=== PATIENT | male | born 1960 | race Caucasian/White ===

== ENCOUNTER → 2017-07-30 | Outpatient (CLI) | payer OTHER ==
[~2017-07-30] MED LIST: AMLO10 PO; LISI-515 PO; PRED20 PO; PRIL20TA2 PO; SACC1CAP3 PO; URSO1TAB5 PO; URSO300C2 PO
[2017-07-30 13:06] LABS: BLOOD, URINE NEG (NEG); COMMENT (UR) CULT NOT INDICATED; CULTURE IF INDICATED CULT NOT INDICATED; GLUCOSE,URINE NEG (NEG); KETONE, URINE NEG (NEG); NITRITE,URINE NEG (NEG); URINE COLOR LIGHT-YELLOW (YELLW/STRAW)
[2017-07-30 13:18] LABS: HEMATOCRIT 41.5 % (39.0-51.0); MEAN CORPUSCULAR HEMOGLOBIN 26.4 PG (27.0-34.0); PLATELET COUNT 323 TH/MM3 (150-450); RED BLOOD COUNT 5.19 MIL/MM3 (4.50-5.90); RED CELL DISTRIBUTION WIDTH 17.4 % (11.6-17.2); WHITE BLOOD COUNT 9.5 TH/MM3 (4.0-11.0)
[2017-07-30 13:19] LABS: HEMO FLAGS AUTO DIFF
[2017-07-30 13:28] LABS: ALT (GPT) 114 U/L (12-78); ANION GAP 9 MEQ/L (5-15); AST (GOT) 36 U/L (15-37); BICARBONATE 27.6 MEQ/L (21.0-32.0); BLOOD UREA NITROGEN 15 MG/DL (7-18); CHLORIDE 106 MEQ/L (98-107); GLOMERULAR FILTRATION RATE 53 ML/MIN (>89); GLUCOSE,FASTING 99 MG/DL (74-99); POTASSIUM 3.1 MEQ/L (3.5-5.1); SODIUM (NA) 143 MEQ/L (136-145)
[2017-07-30 13:31] LABS: ALKALINE PHOSPHATASE 76 U/L (45-117); TOTAL BILIRUBIN ADULT 0.7 MG/DL (0.2-1.0)
[2017-07-30 13:35] LABS: INTERNATIONAL NORMALIZED RATIO 0.9 RATIO; PROTHROMBIN TIME - PATIENT 10.4 SEC (9.8-11.6)
--- NOTE | 2017-07-30 13:47 | RADRPT ---
EXAM DATE/TIME: 07/30/2017 12:47 [place] COMPARISON: No previous studies available for comparison. INDICATIONS : Evaluate for pneumonia, pneumothorax, or communicable disease. Pre op for colectomy. MEDICAL HISTORY : None. SURGICAL HISTORY : None. ENCOUNTER: Initial ACUITY: 1 day PAIN SCORE: 0/10 LOCATION: Chest FINDINGS: Minimal left basilar streakiness is noted consistent with atelectasis and/or developing infiltrate. Clinical correlation is recommended. The heart is normal. The pulmonary vascular pattern is also no rmal. The right lung is clear. CONCLUSION: Minimal left basilar streakiness consistent with atelectasis and/or developing infiltrate. Clinical correlation is recommended. Yunior Vallejo MD on July 30, 2017 at 13:28 Board Certified Radiologist. This report was verified electronically.
[2017-07-30 13:57] LABS: BASOPHILS 2 % (0-2); NEUTROPHIL # MANUAL DIFF 7.6 TH/MM3 (1.8-7.7); PLATELET ESTIMATE SMEAR NORMAL (NORMAL); PLATELET MORPHOLOGY NORMAL (NORMAL); POLYS (SEG NEUTROPHILS) 80 % (16-70); SCAN/DIFF FINAL DIFF MANUAL; WBC DIFF SAMPLE 100
--- NOTE | 2017-07-31 18:21 | EKG ---
Date Performed: 07/30/2017 Time Performed: 12:09:51 PTAGE: 57 years EKG: Sinus rhythm NORMAL ECG NO PREVIOUS TRACING DOCTOR: Eb Hdz Interpretating Date/Time 07/31/2017 18:19:44
== END ==
LOC: CPRE 11:45
PROVIDERS: ATTEND Colon & Rectal Surgery
DX: Z01.810 Encounter for preprocedural cardiovascular examination (principal); Z01.812 Encounter for preprocedural laboratory examination; Z01.818 Encounter for other preprocedural examination; K51.90 Ulcerative colitis, unspecified, without complications
CPT/HCPCS: 36415; 71020; 80053; 81001; 85007; 85027; 85610; 85730; 93005

== ENCOUNTER 2017-08-06 10:55 | Inpatient (IN) | payer OTHER ==
[2017-08-06] VITALS (7 sets, daily range): BP systolic 129–135; BP diastolic 84–89; PULSE 89–112; RESP 18; TEMP 97.7–98.5; O2SAT 95–96
[~2017-08-06] VITALS: Ht 165.1 cm; Wt 85.6 kg
[~2017-08-06 10:55] MED LIST changes: -URSO300C2 PO
--- NOTE | 2017-08-06 11:14 | PD.HP.UP ---
H&P Update Note The Pre-Admit History and Physical Examination regarding the above named patient was reviewed (including, but not limited to, vital signs, heart, lungs, co-morbid conditions), and upon re-examination it is noted that: the patient's condition has not significantly changed since the last examination. Vikas Johnson MD Aug 06, 2017 11:14
[2017-08-06] MEDS ORDERED: URSO300C2 PO (11:57)
[2017-08-06] MEDS ORDERED: METOPROLOL TARTRATE 25 MG TAB PO PRN (12:00)
[2017-08-06] MEDS ORDERED: CHLORHEXIDINE GLUCONATE 2 % 1 PACK (2 CLOTHS) TOPICAL PRN (12:00)
[2017-08-06] MEDS ORDERED: NEOSTIGMINE 3 MG/3 ML SYR IV ONE (12:00)
[2017-08-06] MEDS ORDERED: ceFAZolin 1,000 MG/NS 100 ML IV SCH ×2 (12:00)
[2017-08-06] MEDS ORDERED: GLYCOPYRROLATE 1 MG/5 ML SYRINGE IV PUSH ONE (12:00)
[2017-08-06] MEDS ORDERED: LACTATED RINGER'S 1000 ML IV PRN (12:00)
[2017-08-06] MEDS ORDERED: POVIDONE IODINE 5% (ANTISEPSIS KIT) 4 APPLICATIONS EACH NARE PRN (12:00)
[2017-08-06] MEDS ORDERED: METRONIDAZOLE 500 MG/100 ML ISONTONIC SOLN IV SCH (12:00)
[2017-08-06] MEDS ORDERED: LIDOCAINE HCL 1% PF 5 ML AMPULE OTHER ONE (12:00)
[2017-08-06] MEDS ORDERED: MIDAZOLAM HCL 2 MG/2 ML VIAL IV ONE (12:00)
[2017-08-06] MEDS ORDERED: ALVIMOPAN 12 MG CAPSULE - On Call PO SCH (12:00)
[2017-08-06] MEDS ORDERED: ONDANSETRON HCL 4 MG/2 ML VIAL IV PUSH ONE (12:00)
[2017-08-06] MEDS ORDERED: SODIUM CHLORID 0.9% 500 ML IV PRN (12:00)
[2017-08-06] MEDS ORDERED: ROCURONIUM INJ 50 MG/5 ML SYRINGE IV PUSH ONE (12:00)
[2017-08-06] MEDS ORDERED: INSULIN HUMAN REGULAR 1,000 UNITS/10 ML VIAL SQ PRN (12:00)
[2017-08-06] MEDS ORDERED: MORPHINE SULFATE 4 MG/ML INJ IV ONE (12:00)
[2017-08-06] MEDS ORDERED: PROPOFOL 200 MG/20 ML AMP IV ONE (12:00)
[2017-08-06] MEDS ORDERED: FAMOTIDINE 20 MG/2 ML VIAL ONE (12:49)
[2017-08-06] MEDS ORDERED: DEXAMETHASONE SOD PHOS 4 MG/ML VIAL ONE (12:49)
--- NOTE | 2017-08-06 15:46 | HHI.PR ---
Immediate Post Op Note Procedure Date: Aug 06, 2017 Pre Op Diagnosis: Tena-colitis Post Op Diagnosis: Same Surgeon: Vikas Johnson Care Aid(s): Zackary Procedure: Exploratory lap + total proctocolectomy/ileostomy, liver bx, omental flap Findings: more severe colitis rt, transv, lt colon, some sparing RS to rectum liver nl to palp GB thin walled, no obv stones Complications: None Specimen(s) removed: total abd proctocolon Bx rt lobe liver Estimated blood loss: 100cc Anesthesia: General Drains: LUCAS IVF Patient to: PACU Patient Condition: Good Vikas Johnson MD Aug 06, 2017 15:46
[2017-08-06] MEDS ORDERED: *morphine SULFATE 8 MG/ML PERIprocedure ONLY ONE ×2 (15:48→16:02)
[2017-08-06] MEDS ORDERED: POTASSIUM CHLOR 40 MEQ PREMIX 100 ML IV PRN (16:00)
[2017-08-06] MEDS ORDERED: ACETAMINOPHEN 325 MG TAB PO PRN (16:00)
[2017-08-06] MEDS ORDERED: BENZOCAINE 6 MG/MENTHOL 10 MG LOZENGE BUCCAL PRN (16:00)
[2017-08-06] MEDS ORDERED: ACETAMINOPHEN/HYDROcodone 325 MG/5 MG TAB PO PRN (16:00)
[2017-08-06] MEDS ORDERED: POTASSIUM CHLOR 20 MEQ PREMIX 100 ML IV PRN (16:00)
[2017-08-06] MEDS ORDERED: Post-op Orders (for Pharmacy) MISC XX ONE (16:00)
[2017-08-06] MEDS ORDERED: BUPIVACAINE HCL PF 0.5% 30 ML VIAL NB SCH (16:00)
[2017-08-06] MEDS ORDERED: ENALAPRILAT 2.5 MG/2 ML VIAL IV PRN (16:00)
[2017-08-06] MEDS ORDERED: NALOXONE HCL 0.4 MG/ML AMP IV PRN (16:00)
[2017-08-06] MEDS ORDERED: SODIUM CHLORIDE 0.9% FLUSH 5 ML FLUSH IVF PRN (16:00)
[2017-08-06] MEDS: D5-NS + KCL 20 MEQ INJ 1,000 ML IV SCH ×2 (16:10→21:58)
[2017-08-06] MEDS: MORPHINE SULFATE 30 MG/30 ML PCA IV SCH (16:10)
[2017-08-06] MEDS ORDERED: *HYDROmorphone PF 1 MG VIAL PERIprocedural Use ONLY ONE ×2 (16:23→17:26)
[2017-08-06] MEDS ORDERED: DO NOT ADM ANY ANTICOAGULANT DRUGS PRN (17:15)
[2017-08-06] MEDS: KETOROLAC TROMETHAMINE 30 MG/ML (IVP) VIAL IVP PRN (18:18)
[2017-08-06] MEDS: DEXT 5%-NACL 0.9% 1000 ML INJ 1,000 ML IV SCH (19:13)
[2017-08-06] MEDS: HYDROCORTISONE SOD SUCCINATE 100 MG VIAL IV PUSH SCH (19:33)
[2017-08-06] MEDS: SODIUM CHLORIDE 0.9% FLUSH 5 ML FLUSH IVF SCH (21:00)
[2017-08-06] MEDS: METOCLOPRAMIDE HCL 10 MG/2 ML VIAL IVS SCH (21:07)
[2017-08-06] MEDS: metroNIDAZOLE 500 MG INJ 100 ML IV SCH (21:08)
[2017-08-06] MEDS: PCA - TOTAL MG MORPHINE DELIVERED PER SHIFT SCH (21:56)
[2017-08-07] VITALS (25 sets, daily range): BP systolic 138–162; BP diastolic 84–102; PULSE 70–99; RESP 16–22; TEMP 96.6–98.8; O2SAT 94–96
[2017-08-07] MEDS: KETOROLAC TROMETHAMINE 30 MG/ML (IVP) VIAL IVP PRN ×2 (00:46→16:09)
[2017-08-07] MEDS: MORPHINE SULFATE 30 MG/30 ML PCA IV SCH ×2 (01:16→22:16)
[2017-08-07] MEDS: DEXT 5%-NACL 0.9% 1000 ML INJ 1,000 ML IV SCH ×3 (02:25→20:00)
[2017-08-07] MEDS: HYDROCORTISONE SOD SUCCINATE 100 MG VIAL IV PUSH SCH ×3 (03:42→20:39)
[2017-08-07] MEDS: metroNIDAZOLE 500 MG INJ 100 ML IV SCH ×2 (05:19→14:24)
[2017-08-07] MEDS: D5-NS + KCL 20 MEQ INJ 1,000 ML IV SCH ×2 (05:21→13:02)
[2017-08-07] MEDS: PCA - TOTAL MG MORPHINE DELIVERED PER SHIFT SCH ×3 (05:22→20:49)
[2017-08-07 05:53] LABS: AUTOMATED NEUTROPHIL # 16.5 TH/MM3 (1.8-7.7); BASOPHIL % 0.1 % (0.0-2.0); HEMATOCRIT 40.3 % (39.0-51.0); HEMO FLAGS DIFF FINAL; LYMPH % 2.2 % (9.0-44.0); LYMPHOCYTE # 0.4 TH/MM3 (1.0-4.8); MEAN CELL VOLUME 81.7 FL (80.0-100.0); MEAN CORPUSCULAR HGB CONC 31.8 % (32.0-36.0); MONO % 6.9 % (0.0-8.0); NEUT % 90.8 % (16.0-70.0); PLATELET COUNT 345 TH/MM3 (150-450); RED BLOOD COUNT 4.93 MIL/MM3 (4.50-5.90); RED CELL DISTRIBUTION WIDTH 17.2 % (11.6-17.2); WHITE BLOOD COUNT 18.2 TH/MM3 (4.0-11.0)
[2017-08-07 06:20] LABS: BICARBONATE 25.6 MEQ/L (21.0-32.0); POTASSIUM 3.7 MEQ/L (3.5-5.1)
--- NOTE | 2017-08-07 07:48 | HHI.PR ---
Subjective Remarks C/R Surg POD # 1 afebrile, VSS LUCAS min Objective - Vital Signs Date Time Temp Pulse Resp B/P (MAP) Pulse Ox O2 Delivery O2 Flow Rate FiO2 08/07/17 06:00 77 08/07/17 05:22 16 08/07/17 03:30 95 Room Air 08/07/17 03:30 98.8 138/84 (102) 08/06/17 19:50 1.00 Result Diagram: 08/07/1731 08/07/17530 Objective Remarks PE alert Abd - soft , flat, stoma pink A/P Assessment and Plan Imp: stable post-op OOB decr IVF tx to floor Vikas Johnson MD Aug 07, 2017 07:48
[2017-08-07] MEDS: PANTOPRAZOLE SODIUM 40 MG VIAL IVP SCH (09:00)
[2017-08-07] MEDS: SODIUM CHLORIDE 0.9% FLUSH 5 ML FLUSH IVF SCH ×2 (09:00→20:41)
[2017-08-07] MEDS: PANTOPRAZOLE SOD 40 MG DELAYED RELEASE TAB PO SCH (09:07)
[2017-08-07] MEDS: ALVIMOPAN 12 MG CAPSULE - Post-op dosing PO SCH ×2 (09:07→20:40)
[2017-08-07] MEDS: LISINOPRIL 20 MG TAB PO SCH (09:07)
[2017-08-07] MEDS: METOCLOPRAMIDE HCL 10 MG/2 ML VIAL IVS SCH ×2 (09:08→20:41)
--- NOTE | 2017-08-07 14:17 | PD.WCN.NOT ---
Wound Consult Description: Consult for NEW OSTOMY TEACHING for stoma per Dr Johnson Communicated with: Patient Recommendation: Practice opening, emptying pouch of effluent, and closing pouch Read information booklet left and practice with pouch and barrier left in convatec kit Additional Information: Patient seen on [facility] earlier this morning. Ostomy Type: Ileostomy Surgeon: Vikas Johnson MD Date of Surgery: Aug 06, 2017 Complete: Starter kit, Education materials, Other Educated patient on: Stoma Size Appearance When to seek medical help Dehydration How to obtain appliances Type of appliances available (1 piece and 2 piece open ended) Nutrition and diet Activity Leaks Changing the appliance Additional information *Late entry* Patient seen on [facility] for ostomy evaluation and ileostomy teaching POD #1. Patient was comfortably lying in bed, awake, and alert upon arrival. Patient had many questions that were answered. Stoma was visualized on the right quadrant of abdomen and measuring 1 1/4". Ileostomy is red, round, moist, moderately protruding, functioning with minimal air and minimal dark green stool coming from lumen noted @ 11 o'clock. Mucocutaneous junction was not visualized at this time as appliance was not removed and noted to be intact. Patient was given an educational booklet and the practice pouch and barrier. Patient was able to demonstrate closing and opening the pouch. Supplies ordered in size 2 1/4" for appliance change. Patient will be seen by adjusto writer operator again on Friday08/07/17 for more teaching and to answer more questions So Jaimes Aug 07, 2017 14:17
[2017-08-07] MEDS: ENALAPRILAT 1.25 MG/ML VIAL IV PRN (15:39)
[2017-08-07] MEDS: ALVIMOPAN 12 MG CAPSULE PO SCH (20:40)
[2017-08-08] VITALS: BP 137/77; PULSE 88; RESP 22; TEMP 97.1; O2SAT 93
[2017-08-08] MEDS: DEXT 5%-NACL 0.9% 1000 ML INJ 1,000 ML IV SCH ×3 (03:52→20:29)
[2017-08-08 04:00] VITALS: BP 163/75; PULSE 93; RESP 20; TEMP 97.6; O2SAT 93
[2017-08-08] MEDS: D5-NS + KCL 20 MEQ INJ 1,000 ML IV SCH ×3 (04:21→20:30)
[2017-08-08] MEDS: HYDROCORTISONE SOD SUCCINATE 100 MG VIAL IV PUSH SCH ×3 (04:21→20:30)
[2017-08-08] MEDS: PCA - TOTAL MG MORPHINE DELIVERED PER SHIFT SCH ×3 (04:23→20:31)
--- NOTE | 2017-08-08 05:37 | MP ---
cc: KERRY CARDENAS M.D. DATE OF SURGERY August 06, 2017 PREOPERATIVE DIAGNOSES 1. Pancolitis. 2. Abnormal liver tests. 3. Possible gallstones. PROCEDURE 1. Exploratory laparotomy with total proctocolectomy and ileostomy and omental flap. 2. Bryan-Cut needle biopsy of the right lobe of the liver. POSTOPERATIVE DIAGNOSES 1. Acute pancolitis. 2. Abnormal liver function tests. SURGEON Dr. Cardenas ASSESSMENT Dr. Abel Raymundo PROCEDURE The patient was placed in the supine position. After adequate general anesthesia, his legs were placed in universal stirrups and supported appropriately. The abdomen and perineum were then prepped with Betadine solution and draped in the usual sterile fashion. With Dr. Raymundo's assistance the abdomen was opened through a midline incision. Exploration revealed inflammatory changes to the cecum, right colon transverse colon. The left colon appeared to be a little less obvious with the rectosigmoid showing mild changes of serosal colitis. No evidence of obstruction was present. No evidence of any masses were noted. The small bowel was run from ligament of Treitz down to ileocecal valve and felt to be unremarkable. Stomach and duodenum were normal. The liver was palpated and felt to be pretty normal. The gallbladder was fairly thin-walled and had some maybe fine granular material but no evidence of significant stones were palpated within the lumen. There are no other inflammatory changes to the gallbladder wall. The great vessels were of normal caliber and fairly soft to palpation. First the sigmoid colon was mobilized medially by dividing along the white line of Toldt. The left ureter was identified and carefully preserved. Dissection then proceeded up the left gutter freeing the left colon off the retroperitoneum. The right colon was then mobilized medially by dividing along the white line of Toldt and identifying and preserving the right ureter. Dissection then proceeded up taking down attachments to the hepatic and splenic flexures saving the gastrocolic omentum by taking it off its avascular plane along the transverse colon, entering the lesser sac. After full mobilization, the bowel was dissected off the presacral space down toward the pelvic floor, preserving the pelvic nerves. The bowel was then divided in the terminal ileum using the ADRIAN stapling device. The major vascular pedicles were taken between Sarah's, obtaining hemostasis with Vicryl ties. After the superior hemorrhoidal vessels were taken, the pelvic dissection was completed freeing the bowel down toward the pelvic floor and anteriorly the cul-de-sac was opened and the bowel dissected off the presacral fascia. The lateral stalks were taken with electrocautery and Vicryl ties as necessary for hemostasis. After complete mobilization down to the pelvic floor, the bowel was amputated below the pelvic muscles and the specimen was removed. Dr. Raymundo then went to the perineal aspect of the patient and completed the mucosectomy and proctectomy from below, closing the smooth muscle with interrupted Vicryl sutures, irrigating the subcu tissues and closing the subcu with again interrupted Vicryl sutures. Next, a circular stab wound was created in the right side of the abdomen and the end of the ileum brought up through the stab wound without tension and with good blood supply. The omentum was fashioned in a long pedicle flap and passed down the left gutter to fill the pelvic space. The abdomen was irrigated copiously with normal saline and hemostasis achieved at all operative sites. A Bishnu-Phillip drain was placed into the pelvis and brought up through a stab wound in the right lower quadrant, secured to the skin with a nylon suture. The abdomen was then closed reapproximating the midline fascia with #1 PDS suture. The subcu tissue was irrigated copiously and the skin closed with a running subcuticular Vicryl suture. The wound area was washed with normal saline and dried, sterile dressing of Telfa and gauze applied. Finally, the ADRIAN staple line was removed from the end of the ileostomy and the stoma matured in the usual Azeb fashion by placing a row of interrupted chromic catgut sutures around the circumference. At completion the stoma did appear to be viable and was prolapsing nicely; it was patent through the fascial level. A sterile ileostomy appliance was fitted over the new stoma. The patient tolerated the procedure quite well and was brought to the recovery room in stable condition. Sponge and needle counts were correct at the end of procedure. ADDENDUM Prior to closing a Bryan-Cut needle was used to take two random samples of the right lobe of the liver with good hemostasis achieved with electrocautery. MD GERDA Gutierrez/JOCE /6:03 PM /5:20 AM
[2017-08-08] MEDS: ENALAPRILAT 1.25 MG/ML VIAL IV PRN ×3 (05:40→20:39)
[2017-08-08 07:29] LABS: AUTOMATED NEUTROPHIL # 17.9 TH/MM3 (1.8-7.7); BASOPHIL % 0.2 % (0.0-2.0); HEMATOCRIT 36.8 % (39.0-51.0); HEMO FLAGS DIFF FINAL; LYMPH % 3.4 % (9.0-44.0); LYMPHOCYTE # 0.7 TH/MM3 (1.0-4.8); MEAN CELL VOLUME 82.3 FL (80.0-100.0); MEAN CORPUSCULAR HEMOGLOBIN 26.8 PG (27.0-34.0); MEAN CORPUSCULAR HGB CONC 32.5 % (32.0-36.0); MONO % 4.1 % (0.0-8.0); NEUT % 92.3 % (16.0-70.0); PLATELET COUNT 294 TH/MM3 (150-450); RED BLOOD COUNT 4.48 MIL/MM3 (4.50-5.90); RED CELL DISTRIBUTION WIDTH 17.2 % (11.6-17.2); WHITE BLOOD COUNT 19.5 TH/MM3 (4.0-11.0)
[2017-08-08 07:44] LABS: BICARBONATE 26.4 MEQ/L (21.0-32.0); POTASSIUM 3.7 MEQ/L (3.5-5.1)
[2017-08-08 08:00] VITALS: BP 175/97; PULSE 103; RESP 18; TEMP 97.4; O2SAT 93
[2017-08-08] MEDS: SODIUM CHLORIDE 0.9% FLUSH 5 ML FLUSH IVF SCH ×2 (09:00→20:30)
[2017-08-08] MEDS: ALVIMOPAN 12 MG CAPSULE PO SCH ×2 (09:00→20:30)
[2017-08-08] MEDS: PANTOPRAZOLE SOD 40 MG DELAYED RELEASE TAB PO SCH (09:00)
[2017-08-08] MEDS: ALVIMOPAN 12 MG CAPSULE - Post-op dosing PO SCH ×2 (09:00→20:29)
[2017-08-08] MEDS: METOCLOPRAMIDE HCL 10 MG/2 ML VIAL IVS SCH ×2 (10:34→20:30)
[2017-08-08] MEDS: PANTOPRAZOLE SODIUM 40 MG VIAL IVP SCH (10:34)
[2017-08-08] MEDS: LISINOPRIL 20 MG TAB PO SCH (10:35)
[2017-08-08 12:00] VITALS: BP 158/93; PULSE 101; RESP 18; TEMP 97; O2SAT 95
[2017-08-08 13:40] VITALS: BP 158/102; PULSE 103; RESP 24; TEMP 97; O2SAT 96
--- NOTE | 2017-08-08 13:48 | PD.WCN.NOT ---
Wound Consult Description: Consult for NEW OSTOMY TEACHING for stoma per Dr Johnson Communicated with: Patient Recommendation: Practice opening, emptying pouch of effluent, and closing pouch Read information booklet left and practice with pouch and barrier left in convatec kit Additional Information: Patient seen on [address] [place] [address] for ostomy assessment and teaching. Ostomy Type: Ileostomy Surgeon: Vikas Johnson MD Date of Surgery: Aug 06, 2017 Complete: Starter kit (Obtained verbal consent for starter kit to be sent out, estimated arrival date Friday08/12/17), Education materials, Rx (Script on chart), Other (4 appliances ordered in size 2 1/" for next appliance change and for patient to go home with the remaining ) Educated patient on: Supplies available Changing of barrier every 3-5 days Use of belts Use of barrier rings Peristomal skin care When to seek medical attention vs contacting physician Shaving peristomal skin with electric razor Additional information Patient seen on [address] [place] [address] for Ostomy assessment and teaching. Patient was sitting up in chair with student nurse at bedside when entering room. Patient had many questions that were answered. Patient stoma was visualized after removing the pouch to measure the ileostomy. Stoma is red, round, moist, moderately protruding, lumen noted @ 11 o'clock, functioning with liquid brown stool noted in pouch with intact wafer/barrier noted without leaks. So Jaimes [facility] Aug 08, 2017 13:48
[2017-08-08] MEDS: MORPHINE SULFATE 30 MG/30 ML PCA IV SCH (13:54)
[2017-08-08 20:00] VITALS: BP 175/100; PULSE 104; RESP 20; TEMP 97.2; O2SAT 96
--- NOTE | 2017-08-08 20:37 | HHI.PR ---
Subjective Remarks C/R Surg POD # 2 afebrile, VSS LUCAS min casey PO liq Objective - Vital Signs Date Time Temp Pulse Resp B/P (MAP) Pulse Ox O2 Delivery O2 Flow Rate FiO2 08/08/17 20:31 18 08/08/17 13:40 97.0 103 158/102 (120) 96 08/07/17 03:30 Room Air 08/06/17 19:50 1.00 Result Diagram: 08/08/17 0645 08/08/17 0645 Objective Remarks PE alert Abd - soft , flat, stoma pink, little output A/P Assessment and Plan Imp: OOB decr IVF adv diet Vikas Johnson MD Aug 08, 2017 20:37
[2017-08-09] VITALS: BP 150/85; PULSE 98; RESP 20; TEMP 98.3; O2SAT 95
[2017-08-09] MEDS: DEXT 5%-NACL 0.9% 1000 ML INJ 1,000 ML IV SCH (02:21)
[2017-08-09] MEDS: HYDROCORTISONE SOD SUCCINATE 100 MG VIAL IV PUSH SCH ×3 (02:21→19:55)
[2017-08-09] MEDS: PCA - TOTAL MG MORPHINE DELIVERED PER SHIFT SCH (05:28)
[2017-08-09] MEDS: SODIUM CHLORIDE 0.9% FLUSH 5 ML FLUSH IVF SCH ×2 (08:16→19:54)
[2017-08-09] MEDS: PANTOPRAZOLE SOD 40 MG DELAYED RELEASE TAB PO SCH ×3 (08:17→09:00)
[2017-08-09] MEDS: METOCLOPRAMIDE HCL 10 MG/2 ML VIAL IVS SCH ×2 (08:20→19:55)
[2017-08-09] MEDS: ALVIMOPAN 12 MG CAPSULE - Post-op dosing PO SCH ×2 (08:21→19:55)
[2017-08-09] MEDS: LISINOPRIL 20 MG TAB PO SCH (08:21)
[2017-08-09 08:43] VITALS: BP 146/89; PULSE 86; RESP 17; TEMP 98.3; O2SAT 97
[2017-08-09] MEDS: PANTOPRAZOLE SODIUM 40 MG VIAL IVP SCH (09:00)
[2017-08-09] MEDS: ALVIMOPAN 12 MG CAPSULE PO SCH ×2 (09:00→19:55)
[2017-08-09] MEDS ORDERED: D5-1/2 NS + KCL 20 MEQ INJ 1,000 ML IV SCH (10:00)
[2017-08-09 12:02] VITALS: BP 139/87; PULSE 83; RESP 17; TEMP 98.4; O2SAT 97
[2017-08-09] MEDS: ONDANSETRON HCL 4 MG/2 ML VIAL IV PRN ×2 (12:28→19:56)
[2017-08-09 15:49] VITALS: BP 160/108; PULSE 116; RESP 17; TEMP 97.6; O2SAT 96
[2017-08-09] MEDS: D5-1/2 NS + KCL 20 MEQ INJ 1,000 ML IV SCH (17:05)
[2017-08-09 20:00] VITALS: BP 171/101; PULSE 110; RESP 17; TEMP 96.3; O2SAT 95
[2017-08-09] MEDS: ENALAPRILAT 1.25 MG/ML VIAL IV PRN (20:13)
[2017-08-10] VITALS: BP 142/95; PULSE 99; RESP 17; TEMP 98.2; O2SAT 95
[2017-08-10] MEDS: HYDROCORTISONE SOD SUCCINATE 100 MG VIAL IV PUSH SCH (03:04)
[2017-08-10] MEDS: D5-1/2 NS + KCL 20 MEQ INJ 1,000 ML IV SCH ×3 (03:05→20:36)
[2017-08-10] MEDS: ALVIMOPAN 12 MG CAPSULE - Post-op dosing PO SCH ×2 (08:33→20:44)
[2017-08-10] MEDS: PANTOPRAZOLE SODIUM 40 MG VIAL IVP SCH (08:33)
[2017-08-10] MEDS: LISINOPRIL 20 MG TAB PO SCH (08:33)
[2017-08-10] MEDS: METOCLOPRAMIDE HCL 10 MG/2 ML VIAL IVS SCH ×2 (08:34→20:45)
[2017-08-10] MEDS: ALVIMOPAN 12 MG CAPSULE PO SCH ×2 (08:40→20:44)
[2017-08-10] MEDS: PANTOPRAZOLE SOD 40 MG DELAYED RELEASE TAB PO SCH (08:41)
[2017-08-10] MEDS: SODIUM CHLORIDE 0.9% FLUSH 5 ML FLUSH IVF SCH ×2 (08:41→20:45)
[2017-08-10 08:47] VITALS: BP 142/91; PULSE 92; RESP 20; TEMP 97.9; O2SAT 96
[2017-08-10] MEDS: ACETAMINOPHEN/HYDROcodone 325 MG/5 MG TAB PO PRN ×2 (12:40→17:58)
[2017-08-10 12:53] VITALS: BP 146/91; PULSE 100; RESP 20; TEMP 97.1; O2SAT 96
[2017-08-10 17:17] VITALS: BP 144/96; PULSE 96; RESP 19; TEMP 98.7; O2SAT 96
[2017-08-10] MEDS ORDERED: HYDROCORTISONE SOD SUCCINATE 100 MG VIAL IV PUSH SCH (20:00)
[2017-08-10 20:57] VITALS: BP 146/92; PULSE 88; RESP 18; TEMP 98.2; O2SAT 97
[2017-08-11 00:16] VITALS: BP 124/82; PULSE 82; RESP 20; TEMP 98.1; O2SAT 96
[2017-08-11] MEDS: ACETAMINOPHEN/HYDROcodone 325 MG/5 MG TAB PO PRN ×3 (03:45→17:29)
[2017-08-11] MEDS: D5-1/2 NS + KCL 20 MEQ INJ 1,000 ML IV SCH ×2 (06:43→20:53)
--- NOTE | 2017-08-11 07:25 | HHI.PR ---
Subjective Remarks C/R Surg POD # 5 afebrile, VSS LUCAS min casey PO liq stoma funct Objective - Vital Signs Date Time Temp Pulse Resp B/P (MAP) Pulse Ox O2 Delivery O2 Flow Rate FiO2 08/11/17 00:16 98.1 82 20 124/82 (96) 96 Result Diagram: 08/08/1745 08/08/1745 Objective Remarks PE alert Abd - soft , flat, stoma pink, wound dry A/P Assessment and Plan Imp: OOB decr IVF adv diet dc plans Vikas Johnson MD Aug 11, 2017 07:25
--- NOTE | 2017-08-11 07:28 | HHI.FF ---
Face to Face Verification Diagnosis: (1) Colitis Physical Therapy Order: Evaluate and Treat, Improve ambulation, Strength and gait training Home Health Nursing Order: Medical education Signs/symptoms of disease process Wound care and dressing changes Instructions: stoma teaching I have seen patient Power Arevalo on 08/11/17. My clinical findings support the need for the requested home health care services because: Ltd mobility - disease progression Deconditioned w/ increased weakness Need for psychosocial assistance Infection w/ risk of complications I certify that my clinical findings support that this patient is homebound because: Post-op weakness Unsteady gait/balance Vikas Johnson MD Aug 11, 2017 07:28
[2017-08-11 08:00] VITALS: BP 153/95; PULSE 86; RESP 20; TEMP 99.3; O2SAT 96
[2017-08-11] MEDS: SODIUM CHLORIDE 0.9% FLUSH 5 ML FLUSH IVF SCH ×2 (09:41→20:53)
[2017-08-11] MEDS: LISINOPRIL 20 MG TAB PO SCH (09:43)
[2017-08-11] MEDS: PANTOPRAZOLE SOD 40 MG DELAYED RELEASE TAB PO SCH (09:43)
[2017-08-11] MEDS: ALVIMOPAN 12 MG CAPSULE - Post-op dosing PO SCH ×2 (09:44→20:46)
[2017-08-11] MEDS: PANTOPRAZOLE SODIUM 40 MG VIAL IVP SCH (09:45)
[2017-08-11] MEDS: ALVIMOPAN 12 MG CAPSULE PO SCH ×2 (09:45→20:52)
[2017-08-11] MEDS: HYDROCORTISONE SOD SUCCINATE 100 MG VIAL IV PUSH SCH ×2 (10:39→20:44)
[2017-08-11] MEDS: METOCLOPRAMIDE HCL 10 MG/2 ML VIAL IVS SCH ×2 (10:39→20:46)
[2017-08-11 12:00] VITALS: BP 165/94; PULSE 110; RESP 20; TEMP 98.1; O2SAT 97
--- NOTE | 2017-08-11 15:23 | PD.WCN.NOT ---
Wound Consult Description: Consult for NEW OSTOMY TEACHING for stoma per Dr Johnson Communicated with: Patient Patient sister at bedside Recommendation: Empty pouch of effluent and ensure pouch is closed after emptying Read information booklet and practice with pouch and barrier left in Con[employer]ec kit Plan to change appliance on Friday08/12/17 Additional Information: Patient seen on [address] [place] [address] for ostomy assessment and teaching Ostomy Type: Ileostomy Surgeon: Vikas Johnson MD Date of Surgery: Aug 06, 2017 Complete: Starter kit (Obtained verbal consent for starter kit to be sent out, estimated arrival date Friday08/12/17), Education materials, Rx (Script on chart), Other (2 appliances ordered in size 2 1/4" and 2 appliances ordered in size 1 3/4" along with stomahesive and stoma powder) Educated patient on: Changing barrier tomorrow Skin care Foods to thicken stool Drinking plenty of fluids Ambulating Supplies Additional information Stoma visualized is red, round, moist, functioning with lumen noted @ 11 o' clock and moderately protruding. Mucocutaneous junction is noted with sutures in place other brown unremarkable. Peristomal skin is not visualized at this time. Barrier is intact with open ended pouch. Patient demonstrated how to open and close pouch. Patient had many questions that were answered. So Jaimes [facility] Aug 11, 2017 15:23
[2017-08-11 16:00] VITALS: BP 135/89; PULSE 93; RESP 20; TEMP 97.9; O2SAT 97
[2017-08-11 20:00] VITALS: BP 141/86; PULSE 105; RESP 20; TEMP 97.9; O2SAT 97
[2017-08-12] VITALS: BP 126/84; PULSE 87; RESP 18; TEMP 97.2; O2SAT 96
[2017-08-12] MEDS: ACETAMINOPHEN/HYDROcodone 325 MG/5 MG TAB PO PRN ×2 (02:45→11:06)
[2017-08-12] MEDS: ALVIMOPAN 12 MG CAPSULE PO SCH (07:41)
[2017-08-12 08:00] VITALS: BP_SYST 93; PULSE 93; RESP 18; TEMP 98; O2SAT 99
[2017-08-12] MEDS: PANTOPRAZOLE SODIUM 40 MG VIAL IVP SCH (08:33)
[2017-08-12] MEDS: PANTOPRAZOLE SOD 40 MG DELAYED RELEASE TAB PO SCH (08:35)
[2017-08-12] MEDS: ALVIMOPAN 12 MG CAPSULE - Post-op dosing PO SCH (08:35)
[2017-08-12] MEDS: LISINOPRIL 20 MG TAB PO SCH (08:36)
[2017-08-12] MEDS: METOCLOPRAMIDE HCL 10 MG/2 ML VIAL IVS SCH (08:36)
[2017-08-12] MEDS: SODIUM CHLORIDE 0.9% FLUSH 5 ML FLUSH IVF SCH (08:37)
[2017-08-12] MEDS ORDERED: predniSONE 10 MG TAB PO SCH (09:00)
[2017-08-12 12:30] VITALS: BP 149/91; PULSE 96; RESP 20; TEMP 96.3; O2SAT 98
--- NOTE | 2017-08-12 15:13 | PD.WCN.NOT ---
Wound Consult Description: Consult for NEW OSTOMY TEACHING for stoma per Dr Johnson Communicated with: Patient Gómez,SAI Recommendation: Empty pouch of effluent and ensure pouch is closed after emptying Change barrier every 3-5 days and PRN Additional Information: Patient seen earlier today on for ostomy assessment, teaching, and changing of barrier. Ostomy Type: Ileostomy Surgeon: Vikas Johnson MD Date of Surgery: Aug 06, 2017 Complete: Starter kit (Obtained verbal consent for starter kit to be sent out, estimated arrival date Friday08/12/17), Education materials, Rx (2 Scripts on chart for appliances in patients size now and for when stoma is completely healed and smaller), Other (2 appliances ordered in size 2 1/4" and 2 appliances ordered in size 1 3/4" along with stomahesive and stoma powder) Educated patient on: When to empty pouch of effluent. How to assess barrier for leaks. Knowing when to change barrier. Removing barrier with adhesive removal wipes. Inspecting barrier after removal for breakdown and possible leak areas. Cleanse peristomal skin with water and soft cloths. Measuring stoma for proper barrier selection. Warming barrier prior to application. How to apply the low pressure adaptor if needed. Applying pouch to the flange on the barrier. Closing the pouch. Encrusting skin for peristomal irritations/breakdown Additional information Patient was seen today on from [id number]. Patient was assisted in the removal and application of new barrier and pouch using appliance in size 2 1/4" . Stoma visualized is red, round, moist, has a moderately protruding stoma, with lumen noted @ 12 o'clock and functioning with green soft/liquid effluent noted in pouch that was changed today 08/12/17. So Jaimes [facility] Aug 12, 2017 15:13
--- NOTE | 2017-09-04 09:05 | MD ---
cc: GAURI WHEELER MD, ANDREW H. M.D. ADMISSION DATE: 08/06/2017 DISCHARGE DATE: 08/12/2017 ADMISSION DIAGNOSIS Chronic ulcerative colitis. PROCEDURES on 08/14/2017 - 1. Exploratory laparotomy with total proctocolectomy, ileostomy, omental flap. 2. Bryan-Cut needle of the right lobe of the liver. DISCHARGE DIAGNOSES 1. Pancolitis consistent with ulcerative colitis. No evidence of malignancy. 2. Mild focal steatosis of the liver. HISTORY OF PRESENT ILLNESS Mr. Arevalo is a 56-year-old male who was in relatively good health having a diagnosis of colitis dating back to about 2015. It has been mostly pancolitis as far the patient knows. He was on multiple medications including prednisone and Asacol. He also had Clostridium difficile diagnosed in March of 2017. The patient had continued to have some loose stools with explosive bowel movements and several accidents despite medical management. He has been on Flagyl and vancomycin for the C. Diff [place] a recurrence of the C-diff. He had a recurrence of the C-diff in May of 2017. The patient was switched to Imuran due to a reaction in his legs with weakness and cramps. He has been on vancomycin as well. He stools about three to five times a day in the morning with just small amounts with urgency and some frequency. He said his appetite continued to be down; he lost about 10 pounds in the last month, getting to about 190. The patient was admitted at this time for definitive surgical resection. PAST MEDICAL AND SURGICAL HISTORY Well-documented in the admitting history and physical. PERTINENT PHYSICAL GENERAL: A very pleasant, well-developed male in no acute distress. ABDOMEN: Doughy and soft, nondistended. Normal bowel sounds. No rebound or guarding or masses noted. ANAL INSPECTION: Revealed benign canal. Digital exam revealed some tenderness with some blood on the finger. HOSPITAL COURSE After admission, the patient was taken to the operating room on August 06, 2017, at which point he underwent an exploratory laparotomy with total proctocolectomy and ileostomy and omental flap. He did have a Bryan-Cut needle biopsy of the right lobe of the liver due to liver enzyme abnormalities. He tolerated the procedure well. Postoperatively he was stabilized in the intensive care unit. He did require some respiratory treatment for postoperative atelectasis. His ileostomy began to function rather promptly and his diet was advanced accordingly. He continued to progress with weaning of his IV fluids. Patient Education helped with the teaching of his new stoma care. The patient was eating sufficiently to discontinue his IV fluids, switched to oral pain medication and be considered for discharge home on August 12, 2017. Final pathology report revealed liver biopsy showing focal steatosis. The colon showed moderate active colitis with cryptitis and crypt abscesses consistent with ulcerative colitis. No evidence of dysplasia or malignancy. DISCHARGE INSTRUCTIONS The patient was discharged eating a regular diet. He was to resume all his preop medications. Postop pain medication was provided. The patient will have home healthcare for assistance in the care of his new ileostomy. He was encouraged to drink extra fluids to compensate for ileostomy losses. The patient will be seen in the office in one weeks' time for routine follow-up. Any problems prior to the scheduled office visit he was encouraged to call for more urgent attention. MD GERDA Gutierrez/JOCE /8:35 PM /8:33 AM
== END 2017-08-12 15:10 | disposition home health service (06) | DRG 331 ==
LOC: HSDI 10:55 → EDUNIT# 13:00 → HCIN 18:01 → N07B 08-07 20:08
PROVIDERS: ADMIT Colon & Rectal Surgery; ATTEND Colon & Rectal Surgery
PROC: 0DTP0ZZ Resection of Rectum, Open Approach (ICD-10-PCS; 2017-08-06)
PROC: 0D1B0Z4 Bypass Ileum to Cutaneous, Open Approach (ICD-10-PCS; 2017-08-06)
PROC: 0WJP0ZZ Inspection of Gastrointestinal Tract, Open Approach (ICD-10-PCS; 2017-08-06)
PROC: 0WJJ0ZZ Inspection of Pelvic Cavity, Open Approach (ICD-10-PCS; 2017-08-06)
PROC: 0FB13ZX Excision of Right Lobe Liver, Percutaneous Approach, Diagnostic (ICD-10-PCS; 2017-08-06)
PROC: 0DTE0ZZ Resection of Large Intestine, Open Approach (ICD-10-PCS; principal; 2017-08-06 13:07)
DX: K51.00 Ulcerative (chronic) pancolitis without complications (principal); K80.20 Calculus of gallbladder without cholecystitis without obstruction
CPT/HCPCS: 76937; 80048; 85025; 86850; 86900; 86901; 88307; 88309; 88313; 94150; C9113; J0690; J1100; J1170; J1720; J1885; J2250; J2270; J2405; J2710; J2765; J3010; J3480; J7042; J7120; J7512